=== PATIENT | female | born 1950 | race Caucasian/White ===

== ENCOUNTER 2019-02-04 18:23 | Inpatient (IN) | payer MEDICARE, OTHER ==
[~2019-02-04] VITALS: Ht 152.4 cm; Wt 114.5 kg
[~2019-02-04 18:23] MED LIST: ALPRAZOLAM ODT1 MG PO; BENADRYL25 M1 PO; COLACE100 MG PO; DILAUDID 11 MG/1 ML IV; EDLUAR10 MG PO; ENALAPRIL MALE2.5 MG PO; HYDROCODON-ACE1 EACH PO; LIPITOR10 MG PO; LISINOPRIL2.5 MG PO; LOPRESSOR25 MG PO; MIRTAZAPINE15 MG PO; MORPHINE SULFAT15 M2 PO; NEURONTIN300 MG PO; NITROSTAT0.4 MG SL; PLAVIX75 MG PO; PRISTIQ ER50 MG PO; PROMETHAZINE HC25 M1 PO; RITALIN10 MG PO; SANTYL15 GM TP; SYNTHROID50 MCG PO; ULTRAM50 MG PO; ZOLPIDEM TARTRA10 MG PO
--- OUTSIDE RECORDS SUMMARY | 2019-02-04 18:26 | XMS REPORT | Clinical Summary ---
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 Name Role Phone Asked, No Pcp PCP Unavailable Allergies Not on File Medications Not on file Active Problems Problem Noted Date Ventral hernia without obstruction or gangrene 05/08/2018 Encounters Care Team Description Date Type Specialty Cleveland Campos MD Ventral hernia without obstruction or gangrene (Primary Dx) 05/08/2018 Office Visit General Surgery after 02/03/2018 Social History Date Tobacco Use Types Packs/Day Years Used Never Assessed Sex Assigned at Date Recorded Not on file Industry Job Start Date Occupation Not on file Not on file Not on file Travel End Travel History Travel Start No recent travel history available. Last Filed Vital Signs Time Taken Vital Sign Reading 05/08/2018 5:31 PM CDT Blood Pressure 171/74 05/08/2018 5:31 PM CDT Pulse 80 - Temperature - 05/08/2018 5:31 PM CDT Respiratory Rate 10 - Oxygen Saturation - - Inhaled Oxygen - Concentration 05/08/2018 5:31 PM CDT Weight 101 kg (222 lb) 05/08/2018 5:31 PM CDT Height 144.8 cm (4' 9") 05/08/2018 5:31 PM CDT Body Mass Index 48.04 Plan of Treatment Health Maintenance Due Date Last Done Comments BREAST CANCER SCREENING 2002 COLON CANCER SCREENING 2002 SHINGLES VACCINES (#1) 2002 65+ PNEUMOCOCCAL VACCINE 2017 (1 of 2 - PCV13) PNEUMOCOCCAL 2017 POLYSACCHARIDE VACCINE AGE 65 AND OVER INFLUENZA VACCINE 06/20/2018 08/14/2017, 08/20/2016 Results Not on fileafter 02/03/2018 Insurance Payer Benefit Subscriber ID Type Phone Address Plan / Group HUMANA MEDICARE HUMANA HMO xxxxxxxxx HMO GOLD PLUS MEDICARE [facility] MEDICAID [facility] xxxxxxxxx HMO COMM STAR+ [place] MEDICAID MEDICAID xxxxxxxxx Medicaid Surgery Advance Directives Patient has advance care planning documents on file. For more information, alessandra rob contact: Tae Pérez [address] [place] [address]
--- OUTSIDE RECORDS SUMMARY | 2019-02-04 18:27 | XMS REPORT ---
Author Author [facility] Address Unknown Phone Unavailable Care Team Providers Care Photographer'S Model Name Role Phone Unavailable Unavailable Payers Payer Name Policy Type Policy Number Effective Date Expiration Date Problems This patient has no known problems. Allergies, Adverse Reactions, Alerts Allergy Name Allergy Type Status Severity Reaction(s) Onset Date Inactive Date Treating Clinician Comments propoxyphene HCl DA Active FL 2017-03-13 00:00:00 Penicillins DA Active FL 2017-03-13 00:00:00 Sulfa (Sulfonamide Antibiotics) DA Active FL 2017-03-13 00:00:00 iodine DA Active FL 2017-03-13 00:00:00 lorazepam DA Active U 2017-03-13 00:00:00 codeine DA Active FL 2017-03-13 00:00:00 aspirin DA Active 2017-03-13 00:00:00 erythromycin base DA Active FL 2017-03-13 00:00:00 clindamycin DA Active 2017-03-13 00:00:00 adhesive DA Active U 2017-03-13 00:00:00 latex DA Active FL 2017-03-13 00:00:00 avocado DA Active FL 2017-03-13 00:00:00 coffee (Coffea arabica) DA Active 2017-03-13 00:00:00 MUSHROOMS DA Active 2015-08-09 00:00:00 Medications This patient has no known medications.
--- OUTSIDE RECORDS SUMMARY | 2019-02-04 18:27 | XMS REPORT | Continuity of Care Document ---
Author Author [facility] Interface Address Unknown Phone Unavailable Problems Problem Status Onset Date Classification Date Reported Comments Source DX: R07.9=CHEST PAIN, UNSPECIFIED Active 09/06/2017 [facility] S42.92XA - FRACTURE OF LEFT SHOULDER GIR Active 08/17/2017 ELIZAB[facility] Marmolejo SEVERE PAIN/HERNIA Active 01/19/2015 [facility] Discharge Diagnosis: Closed fracture distal radius and ulna 07/18/2014 07/21/2014 [facility] OTHERS Active 07/18/2014 [facility] ARM PAIN Active 07/16/2014 [facility] Discharge Diagnosis: Post-operative pain 07/16/2014 07/20/2014 [facility] Asthma Resolved Problem 12/16/2018 [facility] Resolved Problem 12/16/2018 [facility] HTN (<span ID="[id number]">Confirmed</span>) Resolved Problem 12/16/2018 [facility] (<span ID="[id number]">Confirmed</span>)<sup>1</sup> Resolved Problem 12/16/2018 4 STENTS PLACED; [facility], [facility]NSPECIFIED Active [facility] Medications Medication Details Route Status Patient Instructions Ordering Provider Order Date Source Acetaminophen 325 MG / Hydrocodone Bitartrate 5 MG Oral Tablet [Brewer 5/325] 1 tab, Route: PO, Drug Form: TAB, Dosing Weight 81.364, kg, ONCE, STAT, Start date: 07/18/14 21:33:00, Stop date: 07/18/14 21:33:00 Inactive 07/19/2014 [facility] Alprazolam 1 mg, PO, Q8H, as needed for anxiety Active 07/17/2014 [facility] fentaNYL 50 mcg/hr transdermal film, extended release 1 patch, TOP, Q72H Active 07/17/2014 [facility] levothyroxine 50 mcg (0.05 mg) oral tablet 50 microgram=1 tab, PO, Daily Active 07/17/2014 [facility] Lidocaine Hydrochloride 0.05 MG/MG Transdermal Patch [Lidoderm] 1 patch, TOP, Daily, remove patches after 12 hoursSpecial Instructions: remove patches after 12 hours Active 07/17/2014 [facility] gabapentin 300 MG Oral Capsule 300 mg=1 cap, PO, TID Active 07/17/2014 [facility] Azo-Cranberry oral tablet 1 tab, PO, Daily Active 07/17/2014 [facility] Acetaminophen 325 MG / Hydrocodone Bitartrate 7.5 MG Oral Tablet [Brewer 7.5/325] 2 tab, PO, Q6H, Pain Active 07/17/2014 [facility] Zolpidem tartrate 10 MG Oral Tablet [Ambien] 10 mg=1 tab, PO, Bedtime, for sleep Active 07/17/2014 [facility] LORazepam 2 mg/mL injectable solution 2 mg=1 ml, IM, Q4H, Anxiety Active 07/17/2014 [facility] ziprasidone 20 MG/ML Injectable Solution [Geodon] 10 mg, IM, Q24H, Agitation Active 07/17/2014 [facility] Nitrofurantoin 100 MG Oral Capsule [Macrobid] 100 mg=1 cap, PO, BID Active 07/17/2014 [facility] Ibuprofen 200 MG Oral Tablet 400 mg=2 tab, PO, Q6H, Pain Active 07/17/2014 [facility] Milk of Magnesia 8% oral suspension 2.4 gm=30 ml, PO, Q6H, Constipation Active 07/17/2014 [facility] albuterol CFC free 90 mcg/inh inhalation aerosol with adapter 2 puff, INHALATION, BID Active 07/17/2014 [facility] Albuterol 0.833 MG/ML / Ipratropium [place] 0.167 MG/ML Inhalant Solution 3 ml, NEB, Q4H, as needed for shortness of breath or wheezing Active 07/17/2014 [facility] Acetaminophen 500 mg, PO, Q4H, as needed for pain Active 07/17/2014 [facility] benzonatate 100 mg oral capsule 100 mg=1 cap, PO, Q4H, Cough Active 07/17/2014 [facility] Docusate Sodium 50 MG / sennosides, SHELTER 8.6 MG Oral Tablet 1 tab, PO, Bedtime Active 07/17/2014 [facility] Morphine 4 mg, 2 mL, Route: IM, Drug form: INJ, ONCE, Dosing Weight 81.364, kg, Priority: STAT, Start date: 07/16/14 21:57:00, Stop date: 07/16/14 21:57:00Notes: (Same as:MORPhine Sulfate) Inactive 07/17/2014 [facility] Allergies, Adverse Reactions, Alerts Substance Category Reaction Severity Reaction type Status Date Reported Comments Source aspirin Assertion Drug allergy Active [facility] [place] codeine Assertion Drug allergy Active [facility] [place] contrast media (iodine-based) Assertion Drug allergy Active [facility] [place] Darvon Assertion Drug allergy Active [facility] [place] erythromycin Assertion Drug allergy Active [facility] [place] Latex Assertion Drug allergy Active [facility] [place] penicillins Assertion Drug allergy Active [facility] [place] sulfa drugs Assertion Drug allergy Active [facility] [place] Immunizations Immunization Date Given Site Status Last Updated Comments Source Results Order Name Results Value Reference Range Date Interpretation Comments Source Shoulder series DX Shoulder series DX Exam: Shoulder series DX left, 3 views Reason for Exam: - M75.82 Other shoulder lesions, left shoulder Comparison Exam: X-ray 08/25/2017 Discussion: Chronic appearing fracture seen within the neck of the left humerus which was previously described on 2017 exam. 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 AC joint is unremarkable. No suspicious osteoblastic or osteolytic lesions seen to suggest pathologic involvement. Impression: 1. Chronic appearing fracture seen within the neck of the left humerus which was previously described on 2017 exam. 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 12/14/2018 - - Read by: Scott Lacy MD Dictated Date/time: 12/14/18 15:37 Electronically Signed by: Scott Lacy MD 12/14/18 15:39 FINAL REPORT [facility] Cardiac SPECT multi studies NM Cardiac SPECT multi studies NM Gated myocardial perfusion scan is performed as per protocol at nuclear medicine lab results [facility]. Lexiscan injected down 0.4 mg intravenously stress agent Cardiolite injected 11 mCi for resting protocol and 30 mCi for stress protocol. Impression Left ventricular ejection fraction 60% . No evidence of wall motion abnormality noted. No ischemia or scar noted. Normal nuclear stress test. 09/28/2017 - - Read by: Rajan Peterson MD Dictated Date/time: 10/18/17 11:33 Electronically Signed by: Rajan Peterson MD 10/18/17 11:36 FINAL REPORT [place] Shoulder series DX Shoulder series DX Exam: Left shoulder x-ray, 3 views Reason for Exam: - S42.92XA Fracture of left shoulder girdle, part unspecified, initial encounter for closed fracture Comparison Exam: X-ray 10/26/2015 Discussion: Patient indicates she has a known left shoulder fracture. A subacute appearing fracture is seen within the neck of the humerus. The AC joint appears intact. No suspicious osteoblastic or osteolytic lesions seen to suggest pathologic involvement. Visualized portions of the left rib cage and left lung are unremarkable. If previous exams become available, an addendum can be made to this report. Impression: 1. A subacute appearing fracture is seen within the neck of the left humerus. 08/25/2017 - - Read by: Scott Lacy MD Dictated Date/time: 08/25/17 16:22 Electronically Signed by: Scott Lacy MD 08/25/17 16:25 FINAL REPORT [facility] Marmolejo Abdomen acute series w chest 1 view DX Abdomen acute series w chest 1 view DX Exam: Chest x-ray, 1 view and abdominal x-ray, 2 views Reason for Exam: - R10.84 Generalized abdominal pain Comparison Exam: Abdominal x-ray 10/26/2015 Discussion: Cardiomediastinal silhouette is within normal limits. Both hemidiaphragms well visualized. No pulmonary edema or pleural effusions. No focal lung consolidations. No free air seen underneath the diaphragm. No dilated loops of bowel or abnormal air-fluid level patterns. However, there is a large right-sided abdominal hernia containing multiple segments of bowel. There are no suspicious calcifications seen overlying the kidneys or expected course of the urinary collecting system. Degenerative changes seen within the lower lumbar spine. Impression: 1. No dilated loops of bowel or abnormal air-fluid level patterns. However, there is a large right-sided abdominal hernia containing multiple segments of bowel. 08/25/2017 - - Read by: Scott Lacy MD Dictated Date/time: 08/25/17 16:25 Electronically Signed by: Scott Lacy MD 08/25/17 16:28 FINAL REPORT [facility] Marmole[facility] Chest 2 views DX Chest 2 views DX Exam: Two-view chest x-ray Reason for Exam: Chest pain unspecified Comparison Exam: 07/17/2007 Discussion: Cardiomediastinal silhouette is within normal limits. Both hemidiaphragms well visualized. No pulmonary edema or pleural effusions. No focal lung consolidations. Trachea is midline. Mild multilevel degenerative disc disease seen within the thoracic spine. Impression: 1. No acute cardiopulmonary abnormalities. 10/26/2015 - - Read by: Scott Lacy MD Dictated Date/time: 10/27/15 08:32 Electronically Signed by: Scott Lacy MD 10/27/15 08:34 FINAL REPORT ELIZABETH Carmichaela Abdomen AP DX Abdomen AP DX ABDOMEN X-RAY, one VIEWS History: 65 year female with abdominal pain, history of a ventral hernia without obstruction Comparison: 05/13/2008 Findings: The bowel gas distribution is not obstructed and nonspecific. The colon is partial distended with stool and gas. There are no abnormal calcifications projecting over abdomen or pelvis. A small phlebolith seen at the right hemipelvis, was seen previously. Surgical clips project over the right upper quadrant. Mild osteoarthritic changes seen throughout the spine. IMPRESSION: Unremarkable abdomen x-ray exam. 10/26/2015 - - Read by: Asim Linton MD Dictated Date/time: 10/27/15 10:12 Electronically Signed by: Asim Linton 10/27/15 10:14 FINAL REPORT ELIZABETH Carmichaela Forearm AP lateral Forearm AP lateral NAME: LUKASZ CAMPBELL : 1950 SEX: F Ordering Physician: Aristeo Russell Three-view examination of the left forearm: Jul 18, 2014 08:46:00 PM. CLINICAL INDICATION: Fracture. Comparison Examination: 07/16/2014. FINDINGS: Overlying cast limits evaluation of bony detail. Two pins are through a left distal radial metaphyseal/epiphyseal fracture. There also appears to be some persistent lucency to a fracture of the left distal ulnar metaphyseal/epiphyseal region. No other fracture or dislocation. The wrist area is poorly evaluated on this study. SL: 12 07/18/2014 - - Read by: Taiwo Yoon MD Dictated Date/time: 07/18/14 20:55 Electronically Signed by: Taiwo Yoon MD 07/18/14 20:58 FINAL REPORT [facility] Vital Signs Vital Sign Value Date Comments Source Systolic (mm Hg) 128 07/19/2014 [facility] Diastolic (mm Hg) 78 07/19/2014 [facility] Heart Rate 77 07/19/2014 [facility] Temperature Oral (F) 98.1 F 07/19/2014 [facility] Respitory Rate 16 07/19/2014 [facility] Height 152.4 cm 07/19/2014 [facility] BMI Calculated 35.03 07/19/2014 [facility] Weight 81.364 07/19/2014 [facility] Heart Rate 96 07/19/2014 [facility] Temperature Oral (F) 36.4 Naz 07/19/2014 [facility] Respitory Rate 18 07/19/2014 [facility] Systolic (mm Hg) 136 07/19/2014 [facility] Diastolic (mm Hg) 73 07/19/2014 [facility] Systolic (mm Hg) 131 07/17/2014 [facility] Respitory Rate 16 07/17/2014 [facility] Diastolic (mm Hg) 84 07/17/2014 [facility] Heart Rate 93 07/17/2014 [facility] Weight 81.364 07/17/2014 [facility] Height 152.4 cm 07/17/2014 [facility] BMI Calculated 35.03 07/17/2014 [facility] Systolic (mm Hg) 127 07/17/2014 [facility] Diastolic (mm Hg) 84 07/17/2014 [facility] Heart Rate 90 07/17/2014 [facility] Temperature Oral (F) 98.5 F 07/17/2014 [facility] Respitory Rate 18 07/17/2014 [facility] Encounters Location Location Details Encounter Type Encounter Number Reason For Visit Attending Provider ADM Date DC Date Status Source [facility] [id number] Bola Mcghee 07/17/2014 07/17/2014 [facility] [id number] Cat Russell 07/19/2014 07/19/2014 [facility] [place] [facility] [id number] Zane Liang 10/26/2015 10/27/2015 [facility] [place] [facility] [place] [facility] [id number] Zane Liang 08/25/2017 08/26/2017 ELIZABETH Marmolejo [facility] [id number] Rajan Peterson 09/28/2017 09/29/2017 [facility] [place] [facility] [id number] Zane Liang 12/14/2018 12/15/2018 ELIZABETH Marmolejo Procedures Procedure Code Date Perfomer Comments Source
--- OUTSIDE RECORDS SUMMARY | 2019-02-04 18:27 | XMS REPORT | Summary of Care ---
Author Organization Unknown Address Unknown Phone Unavailable Encounter CRISTÓBAL Hoffman(SILVIA) [id number] Date(s): 07/18/14 - 07/19/14 [facility] [address] [address] - [facility] Discharge Diagnosis: Closed fracture distal radius and ulna Discharge Disposition: Home Physician Attending: Keya Russell DO Reason for Visit OTHERS Vital Signs Most recent to 1 2 oldest [Reference Range]: Height 152.4 cm (07/18/14 7:12 PM) Temperature Oral 98.1 DegF [96.4-99.1 DegF] (07/19/14 12:40 AM) Temperature Oral 36.4 DegC [35.8-37.3 DegC] (07/18/14 7:12 PM) Systolic Blood 128 mmHg 136 mmHg Pressure [90-140 (07/19/14 12:40 AM) (07/18/14 7:12 PM) mmHg] Diastolic Blood 78 mmHg 73 mmHg Pressure [60-90 (07/19/14 12:40 AM) (07/18/14 7:12 PM) mmHg] Respiratory Rate 16 BRMIN 18 BRMIN [14-20 BRMIN] (07/19/14 12:40 AM) (07/18/14 7:12 PM) Peripheral Pulse 77 bpm 96 bpm Rate [60-100 bpm] (07/19/14 12:40 AM) (07/18/14 7:12 PM) Weight 81.364 kg (07/18/14 7:12 PM) Body Mass Index 35.03 m2 (07/18/14 7:12 PM) Problem List Condition Effective Dates Status Health Status Informant Asthma(Confirmed) Resolved Diabetes Resolved mellitus(Confirmed) HTN Resolved (hypertension)(Confi rmed) [place] (myocardial Resolved infarction)(Confirme d)1 14 STENTS PLACED; 1998 Allergies, Adverse Reactions, Alerts Substance Reaction Severity Status aspirin Active codeine Active contrast media Active (iodine-based) Darvon Active erythromycin Active Latex Active penicillins Active sulfa drugs Active Medications [place] 5/325 oral tablet 1 tab, Route: PO, Drug Form: TAB, Dosing Weight 81.364, kg, ONCE, STAT, Start da te: 07/18/14 21:33:00, Stop date: 07/18/14 21:33:00 Start Date: 07/18/14 Stop Date: 07/18/14 Status: Completed Medications Administered During Your Visit No data available for this section Immunizations No data available for this section
--- OUTSIDE RECORDS SUMMARY | 2019-02-04 18:27 | XMS REPORT | Summary of Care ---
Author Author [facility] Organization [facility] Address Unknown Phone Unavailable Encounter HQ Yasmin(SILVIA) [id number] Date(s): 09/28/17 - 09/28/17 [facility] [address] [place] [address]- Discharge Disposition: Home or Self Care Attending Physician: Rajan Peterson MD Referring Physician: Rajan Peterson MD Vital Signs No data available for this section Problem List Condition Effective Dates Status Health Status Informant Asthma(Confirmed) Resolved Diabetes Resolved mellitus(Confirmed) HTN Resolved (hypertension)(Confi rmed) [place] (myocardial Resolved infarction)(Confirme d)1 14 STENTS PLACED; 1998 Allergies, Adverse Reactions, Alerts Substance Reaction Severity Status penicillins Active sulfa drugs Active codeine Active erythromycin Active aspirin Active Darvon Active Latex Active contrast media Active (iodine-based) Medications No data available for this section Results No data available for this section Immunizations No data available for this section Procedures No data available for this section Social History No data available for this section Assessment and Plan No data available for this section
--- OUTSIDE RECORDS SUMMARY | 2019-02-04 18:27 | XMS REPORT | Summary of Care ---
Author Author [facility] [place] Organization [facility] Outpatient Imaging [facility] Address Unknown Phone Unavailable Encounter HQ Chingntr_wilman(FIN) [id number] Date(s): 10/26/15 - 10/26/15 [facility] [address] [place] [address] [phone] Discharge Disposition: Home Attending Physician: Zane Liang MD Vital Signs No data available for this section Problem List Condition Effective Dates Status Health Status Informant Asthma(Confirmed) Resolved Diabetes Resolved mellitus(Confirmed) HTN Resolved (hypertension)(Confi rmed) [place] (myocardial Resolved infarction)(Confirme d)1 14 STENTS PLACED; 1998 Allergies, Adverse Reactions, Alerts Substance Reaction Severity Status aspirin Active codeine Active contrast media Active (iodine-based) Darvon Active erythromycin Active Latex Active penicillins Active sulfa drugs Active Medications No data available for this section Results No data available for this section Immunizations No data available for this section Procedures No data available for this section Social History No data available for this section Assessment and Plan No data available for this section
--- OUTSIDE RECORDS SUMMARY | 2019-02-04 18:27 | XMS REPORT | Summary of Care ---
Author Author [facility] [place] Organization [facility] Outpatient Imaging [facility] Address Unknown Phone Unavailable Encounter HQ Elar_wilman(FIN) [id number] Date(s): 08/25/17 - 08/25/17 [facility] [address] [place] [address]- [phone] Discharge Disposition: Home or Self Care Attending Physician: Zane Liang MD Vital Signs No data available for this section Problem List Condition Effective Dates Status Health Status Informant Asthma(Confirmed) Resolved Diabetes Resolved mellitus(Confirmed) HTN Resolved (hypertension)(Confi rmed) [place] (myocardial Resolved infarction)(Confirme d)1 14 STENTS PLACED; [...]
--- OUTSIDE RECORDS SUMMARY | 2019-02-04 18:27 | XMS REPORT | Summary of Care ---
Author Organization Unknown Address Unknown Phone Unavailable Encounter CRISTÓBAL Hoffman(SILVIA) [id number] Date(s): 07/16/14 - 07/17/14 [facility] [address] Discharge Diagnosis: Post-operative pain Discharge Disposition: Home Physician Attending: Bola Mcghee MD Reason for Visit ARM PAIN Vital Signs Most recent to 1 2 oldest [Reference Range]: Height 152.4 cm (07/16/14 7:28 PM) Temperature Oral 98.5 DegF [96.4-99.1 DegF] (07/16/14 7:28 PM) Systolic Blood 131 mmHg 127 mmHg Pressure [90-140 (07/17/14 1:46 AM) (07/16/14 7:28 PM) mmHg] Diastolic Blood 84 mmHg 84 mmHg Pressure [60-90 (07/17/14 1:46 AM) (07/16/14 7:28 PM) mmHg] Respiratory Rate 16 BRMIN 18 BRMIN [14-20 BRMIN] (07/17/14 1:46 AM) (07/16/14 7:28 PM) Peripheral Pulse 93 bpm 90 bpm Rate [60-100 bpm] (07/17/14 1:46 AM) (07/16/14 7:28 PM) Weight 81.364 kg (07/16/14 7:28 PM) Body Mass Index 35.03 m2 (07/16/14 7:28 PM) Problem List Condition Effective Dates Status Health Status Informant Asthma(Confirmed) Resolved Diabetes Resolved mellitus(Confirmed) HTN Resolved (hypertension)(Confi rmed) CT (myocardial Resolved infarction)(Confirme d)1 14 STENTS PLACED; 1998 Allergies, Adverse Reactions, Alerts Substance Reaction Severity Status aspirin Active codeine Active contrast media Active (iodine-based) Darvon Active erythromycin Active Latex Active penicillins Active sulfa drugs Active Medications acetaminophen 500 mg, PO, Q4H, as needed for pain Start Date: 07/16/14 Status: Ordered albuterol CFC free 90 mcg/inh inhalation aerosol with adapter 2 puff, INHALATION, BID Start Date: 07/16/14 Status: Ordered albuterol-ipratropium 2.5-0.5 mg inhalation solution 3 ml, NEB, Q4H, as needed for shortness of breath or wheezing Start Date: 07/16/14 Status: Ordered ALPRAZOLam 1 mg, PO, Q8H, as needed for anxiety Start Date: 07/16/14 Status: Ordered Ambien 10 mg oral tablet 10 mg=1 tab, PO, Bedtime, for sleep Start Date: 07/16/14 Status: Ordered Azo-Cranberry oral tablet 1 tab, PO, Daily Start Date: 07/16/14 Status: Ordered benzonatate 100 mg oral capsule 100 mg=1 cap, PO, Q4H, Cough Start Date: 07/16/14 Status: Ordered docusate-senna 50 mg-8.6 mg oral tablet 1 tab, PO, Bedtime Start Date: 07/16/14 Status: Ordered fentaNYL 50 mcg/hr transdermal film, extended release 1 patch, TOP, Q72H Start Date: 07/16/14 Status: Ordered gabapentin 300 mg oral capsule 300 mg=1 cap, PO, TID Start Date: 07/16/14 Status: Ordered Geodon 20 mg intramuscular injection 10 mg, IM, Q24H, Agitation Start Date: 07/16/14 Status: Ordered ibuprofen 200 mg oral tablet 400 mg=2 tab, PO, Q6H, Pain Start Date: 07/16/14 Status: Ordered levothyroxine 50 mcg (0.05 mg) oral tablet 50 microgram=1 tab, PO, Daily Start Date: 07/16/14 Status: Ordered Lidoderm 5% topical film (patch) 1 patch, TOP, Daily, remove patches after 12 hours Special Instructions: remove patches after 12 hours Start Date: 07/16/14 Status: Ordered LORazepam 2 mg/mL injectable solution 2 mg=1 ml, IM, Q4H, Anxiety Start Date: 07/16/14 Status: Ordered Macrobid 100 mg oral capsule 100 mg=1 cap, PO, BID Start Date: 07/16/14 Status: Ordered Milk of Magnesia 8% oral suspension 2.4 gm=30 ml, PO, Q6H, Constipation Start Date: 07/16/14 Status: Ordered morphine Sulfate 4 mg, 2 mL, Route: IM, Drug form: INJ, ONCE, Dosing Weight 81.364, kg, Priority: STAT, Start date: 07/16/14 21:57:00, Stop date: 07/16/14 21:57:00 Notes: (Same as:MORPhine Sulfate) Start Date: 07/16/14 Stop Date: 07/16/14 Status: Completed [place] 7.5/325 oral tablet 2 tab, PO, Q6H, Pain Start Date: 07/16/14 Status: Ordered Medications Administered During Your Visit No data available for this section Immunizations No data available for this section
--- OUTSIDE RECORDS SUMMARY | 2019-02-04 18:27 | XMS REPORT | Summary of Care ---
Author Author [facility] [place] Organization [facility] [place] Address Unknown Phone Unavailable Encounter HQ Viry_wilman(FIN) [id number] Date(s): 12/14/18 - 12/14/18 [facility] Outpatient Imaging [facility] [address] [place] [phone] Discharge Disposition: Home or Self Care Attending Physician: Zane Liang MD Referring Physician: Zane Liang MD Vital Signs No data available for this section Problem List Condition Effective Dates Status Health Status Informant Asthma(Confirmed) Resolved Diabetes Resolved mellitus(Confirmed) HTN Resolved (hypertension)(Confi rmed) [place] (myocardial Resolved infarction)(Confirme d)1 14 STENTS PLACED; [...]
[2019-02-04] MEDS ORDERED: SODIUM CHLORIDE FLUSH 10 ML SYR INJ PRN (19:00)
[2019-02-04] MEDS ORDERED: DEXTROSE 50% SYRINGE 50 ML IV PRN (19:00)
[2019-02-04] MEDS ORDERED: CLOPIDOGREL BISULFATE 75 MG TAB PO ONE (19:35)
--- NOTE | 2019-02-04 19:37 | NUR ---
rec'd pt in rm 11 for c/o open wound to the abdominal area
--- NOTE | 2019-02-04 19:48 | Diagnostic Imaging Report ---
EXAMINATION: CHEST SINGLE (NOT PORTABLE) INDICATION: 68-year-old female, abdominal wall cellulitis COMPARISON: Chest radiograph dated 03/16/2014 FINDINGS: AP view TUBES and LINES: None. LUNGS/PLEURA: Interval increase in interstitial prominence compared to prior study. No focal consolidation or pleural effusion. HEART AND MEDIASTINUM: Enlarged cardiac silhouette. Coronary artery stent. BONES AND SOFT TISSUES: No acute osseous lesion. Soft tissues are unremarkable. UPPER ABDOMEN: No free air under the diaphragm. IMPRESSION: Enlarged cardiac silhouette without acute pulmonary process. Signed by: Christian Mcwilliams MD on 02/04/2019 7:44 PM
--- NOTE | 2019-02-04 19:54 | Diagnostic Imaging Report ---
EXAMINATION: ABDOMEN-1VIEW (KUB) INDICATION: 68-year-old female with abdominal wall cellulitis COMPARISON: Prior abdominal radiographs dated 02/27/2013 FINDINGS: 3 AP views of the abdomen. Integrity of the abdomen is likely not included on this exam due to body habitus. Large ventral wall hernia defect with multiple loops of large and small bowel projecting outside of the abdomen from the right. No definitive evidence of obstruction or free air within the limitations of this exam. Cholecystectomy clips. Degenerative changes of the lower lumbar spine. No lytic or blastic osseous lesion. Visualized portions of the lung bases are clear. Partially mineralized densities projecting superiorly to the left greater trochanter may represent a free body in the left hip. IMPRESSION: Study is limited due to body habitus. Large abdominal wall defect with multiple loops of small and large bowel projecting outside of the abdominal wall on the right. No clear evidence of obstruction. Signed by: Christian Mcwilliams MD on 02/04/2019 7:51 PM
[2019-02-04 20:00] LABS: BASOPHILS # (AUTO) 0.2 (0.0-0.1); BASOPHILS % 0.9 % (0.0-1.0); EOSINOPHILS # (AUTO) 0.3 (0.0-0.4); EOSINOPHILS % 1.8 % (0.0-6.0); HEMATOCRIT 47.9 % (34.2-44.1); HEMOGLOBIN 14.8 g/dL (12.0-16.0); LYMPHOCYTES # (AUTO) 4.4 (1.0-3.2); LYMPHOCYTES % 27.8 % (18.0-39.1); MEAN CORPUSCULAR HEMOGLOBIN 28.9 pg (28-32); MEAN CORPUSCULAR HGB CONC 30.9 g/dL (31-35); MEAN CORPUSCULAR VOLUME 93.6 fL (81-99); MONOCYTES # (AUTO) 1.3 (0.2-0.8); MONOCYTES % 8.2 % (4.4-11.3); NEUTROPHILS # (AUTO) 9.4 (2.1-6.9); NEUTROPHILS % 59.3 % (38.7-80.0); PLATELET COUNT 318 x10e3/uL (140-360); RED BLOOD COUNT 5.12 x10e6/uL (3.6-5.1); RED CELL DISTRIBUTION WIDTH 15.9 % (11.7-14.4)
[2019-02-04 20:02] LABS: BILIRUBIN,URINE NEGATIVE (NEGATIVE); CLARITY,URINE SL CLOUDY (CLEAR); COLOR,URINE YELLOW (YELLOW); KETONES,URINE NEGATIVE (NEGATIVE); LEUKOCYTE ESTERASE ,URINE NEGATIVE (NEGATIVE); NITRITE,URINE NEGATIVE (NEGATIVE); PROTEIN,URINE DIPSTICK NEGATIVE (NEGATIVE); URINE UROBILINOGEN 0.2 mg/dL (0.2 - 1)
[2019-02-04 20:04] LABS: INR 0.88; PROTHROMBIN TIME 12.4 seconds (11.9-14.5)
[2019-02-04 20:05] LABS: PARTIAL THROMBOPLASTIN TIME 28.6 seconds (23.8-35.5)
[2019-02-04 20:13] LABS: BACTERIA,URINE FEW /HPF; EPITHELIAL CELLS,URINE FEW /LPF; RBC,URINE 0-5 /HPF (0-5)
[2019-02-04 20:14] LABS: ALBUMIN 2.8 g/dL (3.5-5.0); ALBUMIN/GLOBULIN RATIO 0.5 (0.8-2.0); ANION GAP 15.8 mmol/L (8-16); CREATININE, SERUM 1.01 mg/dL (0.57-1.11); POTASSIUM 3.8 mmol/L (3.5-5.1)
[2019-02-04] MEDS: VANCOMYCIN 1GM/NS 250 ML 250 ML IV SCH (20:23)
[2019-02-04] MEDS ORDERED: QUETIAPINE FUMARATE 100 MG TAB PO SCH (21:00)
[2019-02-04] MEDS ORDERED: GABAPENTIN 300 MG CAP PO ONE (21:00)
[2019-02-04] MEDS: INSULIN LISPRO 100 UNIT/1 ML 3ML VIAL SQ SCH (21:27)
[2019-02-04] MEDS: QUETIAPINE FUMARATE 100 MG TAB PO SCH (22:15)
[2019-02-04] MEDS ORDERED: ONDANSETRON HCL4 MG PO (23:11)
[2019-02-04] MEDS ORDERED: SEROQUEL25 MG PO (23:11)
[2019-02-04] MEDS ORDERED: PANTOPRAZOLE SO40 MG PO (23:11)
[2019-02-04] MEDS ORDERED: MUPIROCIN22 GM TOP (23:11)
[2019-02-04] MEDS ORDERED: PAROXETINE HCL20 MG PO (23:11)
[2019-02-04] MEDS ORDERED: MORPHABOND PO (23:11)
[2019-02-04] MEDS ORDERED: LORATADINE10 MG PO (23:11)
[2019-02-04] MEDS ORDERED: PROAIR HFA INH8.5 GM INH (23:11)
[2019-02-04] MEDS ORDERED: MOBIC7.5 MG PO (23:11)
[2019-02-04] MEDS ORDERED: CEFUROXIME250 MG PO (23:14)
[2019-02-04] MEDS ORDERED: IBUPROFEN200 MG PO (23:14)
--- NOTE | 2019-02-04 23:14 | NUR ---
HOME MED LIST UPDATED INTO THE COMPUTER
[2019-02-04] MEDS ORDERED: PRISTIQ ER100 MG PO (23:19)
[2019-02-04] MEDS ORDERED: PIPER-TAZ 3.375 GM 50 ML ONE (23:56)
--- OUTSIDE RECORDS SUMMARY | 2019-02-04 23:58 | XMS REPORT | Clinical Summary ---
Author Author [facility] [employer] Organization [facility] Address Unknown Phone Unavailable Care Team Providers Care Welder Fabricator Name Role Phone Asked, No Pcp PCP [...] HUMANA HMO xxxxxxxxx HMO GOLD PLUS MEDICARE [facility] MEDICAID [facility] xxxxxxxxx HMO [employer] [facility] MEDICAID MEDICAID xxxxxxxxx Medicaid Surgery Advance Directives Patient has advance care planning documents on file. For more information, alessandra rob contact: Tae Pérez [address] [place] [address]
[2019-02-05] MEDS ORDERED: PIPER-TAZ 3.375 GM 50 ML IV ONE (00:01)
[2019-02-05] MEDS: ZOLPIDEM TARTRATE 10 MG TAB PO PRN ×2 (00:14→21:30)
[2019-02-05] MEDS: LEVOTHYROXINE SODIUM 50 MCG TAB PO SCH (06:20)
--- NOTE | 2019-02-05 06:55 | NUR ---
ASSUMED CARE AT THIS TIME. PATIENT LAYING IN BED WITH EYES CLOSED. SKIN WARM AND DRY. RESP EVEN AND UNLABORED. NO SIGNS OF ACUTE DISTRESS NOTED AT THIS TIME.
[2019-02-05] MEDS: HYDROCODONE/APAP 10MG-325MG TAB PO PRN ×3 (07:43→21:17)
[2019-02-05] MEDS: VANCOMYCIN 1GM/NS 250 ML 250 ML IV SCH ×2 (07:45→19:40)
[2019-02-05] MEDS: INSULIN LISPRO 100 UNIT/1 ML 3ML VIAL SQ SCH ×4 (07:52→21:00)
[2019-02-05] MEDS: DESVENLAFAXINE SUCCINATE 50 MG TAB.SR.24H PO SCH (08:41)
--- NOTE | 2019-02-05 09:05 | NUR ---
PATIENT AWAKE AND ALERT ON CELL PHONE. SKIN WARM AND DRY. RESP EVEN AND UNLABORED. NO SIGNS OF ACUTE DISTRESS NOTED AT THIS TIME. DENIES ANY C/O AT THIS TIME.
[2019-02-05] MEDS: PIPER-TAZ 3.375 GM 50 ML IV SCH ×2 (09:23→18:06)
--- NOTE | 2019-02-05 10:12 | NUR ---
DR Priti DUARTE AT BEDSIDE FOR PATIENT EVAL.
--- NOTE | 2019-02-05 10:30 | NUR ---
REPORT FROM ER NURSE SAY AND PT TO THE FLOOR AT THIS TIME. PT DENIES FURTHER NEEDS.
[2019-02-05 12:09] VITALS: BP 158/60
--- NOTE | 2019-02-05 12:20 | NUR ---
PT OFF UNIT TO RADIOLOGY.
--- NOTE | 2019-02-05 12:45 | NUR ---
PT BACK TO UNIT FROM RADIOLOGY.
--- NOTE | 2019-02-05 12:53 | Diagnostic Imaging Report ---
EXAMINATION: CT of the abdomen and pelvis without contrast. TECHNIQUE: Spiral CT images of the abdomen and pelvis were performed from the lung bases to the lesser trochanters. No intravenous contrast was given per iodine allergy. Coronal and sagittal reformatted images were obtained. COMPARISON: Abdominal radiograph 02/04/2019 CLINICAL HISTORY:Cellulitis of abdominal wall DISCUSSION: ABSENCE OF INTRAVENOUS CONTRAST DECREASES SENSITIVITY FOR DETECTION OF FOCAL LESIONS AND VASCULAR PATHOLOGY. ABDOMEN/PELVIS: LOWER THORAX: Linear opacity compatible with subsegmental atelectasis in the dependent lower lobes. HEPATOBILIARY:Hepatic parenchyma is diffusely hypoattenuating compatible with steatosis. No focal hepatic lesion or intrahepatic biliary ductal dilatation. The gallbladder has been removed. SPLEEN: No splenomegaly. PANCREAS: The pancreatic head and uncinate process are largely fatty replaced. No focal mass or pancreatic ductal dilatation. ADRENALS: No adrenal nodules. KIDNEYS/URETERS: No hydronephrosis, stones, or solid mass lesions. PELVIC ORGANS/BLADDER: Urinary bladder is incompletely distended and poorly evaluated. The uterus is not identified and may have been resected. No adnexal mass. PERITONEUM/RETROPERITONEUM: No ascites. No pneumoperitoneum. A very large ventral abdominal wall hernia with defect measuring approximately 15.3 cm craniocaudal x 16.6 cm transverse contains large segments of the small and large intestine, as well as the greater curvature of the stomach and portions of the left hepatic lobe. No inflammatory change or bowel dilatation within the hernia sac. No subcutaneous gas or fluid collection, though evaluation of the anterior abdominal surface is limited secondary to patient body habitus with multiple contact points with the scanning gantry. LYMPH NODES: No pelvic sidewall, retroperitoneal, or mesenteric adenopathy. VESSELS: Atherosclerotic calcification of the abdominal aorta without aneurysmal dilatation. Evaluation is otherwise limited in the absence of intravenous contrast. GI TRACT: The large bowel shows no evidence of distention or wall thickening. The entire ascending and transverse colon are located within the above-described hernia sac. The appendix is not definitively identified. No pericecal inflammatory changes. The stomach is collapsed with prominence of the rugal folds. There is no small bowel dilatation to suggest obstruction. BONES AND SOFT TISSUES: No osseous destructive lesions. Mild degenerative disc changes and facet arthropathy of the lower lumbar spine. No additional focal soft tissue abnormalities. IMPRESSION: Very large ventral abdominal wall hernia contains portions of the colon, small bowel, stomach, and liver as detailed above. No inflammatory changes or evidence of bowel obstruction within the hernia sac. No subcutaneous gas or fluid collection in this patient with reported history of abdominal wall cellulitis. Atherosclerotic vascular disease. Hepatic steatosis. Signed by: Dr. Chente Sommers M.D. on 02/05/2019 12:49 PM
[2019-02-05 14:00] VITALS: BP 129/58
--- NOTE | 2019-02-05 14:50 | NUR ---
Visit made by the Spiritual Care Department Pastoral Visitor, Milagro Sanchez. Pt sleeping soundly and no family present. Pastoral Visitor left a card describing availability of stripper and printer and instructions on how to contact a stripper and printer. NOLA MOON Lock Setter Spiritual Care Department O: [phone] Pager: [phone] ([phone] number calling from)
[2019-02-05 15:59] VITALS: BP 129/58
[2019-02-05 16:23] VITALS: BP 129/58
--- NOTE | 2019-02-05 18:28 | History and Physical ---
HISTORY OF PRESENT ILLNESS: This is a 68-year-old female patient presented to the hospital assessing the treatment. The patient has large ventral hernia and she has had chronic skin excoriation, but now she is having ulceration with copious foul discharge. The patient was treated as an outpatient with minocycline, but the patient did not respond to any Bactroban ointment. The patient has severe debilitation from the large ventral hernia. The patient had ER visit as well as outpatient visit. The patient continued to deteriorate with her ulceration and started feeling feverish. The patient was subsequently sent to the hospital. PAST MEDICAL HISTORY: The patient has significant medical history of complicated large ventral hernia with status post abdominal wall dehiscence and ventral hernia surgery. The patient has diabetes mellitus, hypertension, hypertensive heart disease, coronary artery disease, morbid obesity, depression, and anxiety. ALLERGIES: THE PATIENT IS ALLERGIC TO ERYTHROMYCIN, ASPIRIN, DARVOCET, AND IODINE. PAST SURGICAL HISTORY: The patient has knee surgery and the patient has shoulder fracture. The patient has large ventral hernia surgery and abdominal wall dehiscence. SOCIAL HISTORY: Denies smoking. Denies using alcohol. The patient lives with her son. REVIEW OF SYSTEMS: As per history of present illness. PHYSICAL EXAMINATION: VITAL SIGNS: Temperature 99, pulse rate 90, blood pressure 110/70, and respiratory rate 20. HEENT: Normocephalic, atraumatic. NECK: No JVD. No lymphadenopathy. LUNGS: Bilateral equal air entry. No rales. No rhonchi. HEART: S1 and S2, regular. Systolic murmur present. ABDOMEN: Soft. Bowel sounds are present. The patient has large ventral hernia with remote 3 cm ulcer with slough and purulent discharge. EXTREMITIES: No edema. NEUROLOGIC: No focal neurological deficit. ADMITTING INPATIENT DIAGNOSES: Abdominal wall cellulitis with ulceration with large ventral hernia, diabetes mellitus, hypertension, coronary artery disease, and morbid obesity. HOSPITAL COURSE SUMMARY: The patient will be admitted with above diagnoses. We will treat the patient with IV antibiotics, vancomycin and Zosyn. We will obtain local wound care and obtain wound care consult and ID consult. I will get a CT scan of the abdomen. MD MEGAN Carbone/MODL /[id number]
--- NOTE | 2019-02-05 18:43 | Consultation ---
DATE OF CONSULTATION: Wound Consultation. Thank you Dr. Zane Liang for asking us to see this patient with a nonhealing ulcer to the abdominal wall. HISTORY OF PRESENT ILLNESS: A 68-year-old female patient, underwent surgery in October 2011 for hernia. She also had appendicectomy. She had multiple hernia surgeries, total of 4, by Dr. Sher and Rasheeda in the past. She had a dehiscence and nonhealing wound, which was treated in the past with the wound VAC and the skin graft. She has large ventral hernia. The patient's abdominal wall skin has been stretched without muscle layer underneath, with intestine under the subcutaneous tissue and her abdominal fold was rubbing and she developed wound on the hernial pouch. Wound has some slough measures approximately 6 x 3.5 cm x 0.2 cm. PAST MEDICAL HISTORY: Depression, hypertension, and insomnia. MEDICATIONS: Alprazolam 1 mg t.i.d., cefuroxime, Plavix 75 mg daily, Pristiq 100 mg daily, pantoprazole, Seroquel 25 mg tablet, 400 mg p.o. daily; Ambien 12.5 mg at night. ALLERGIES: FISH CONTAINING PRODUCTS, TAPE, ASPIRIN, AVOCADO, BANANA, CHICKPEA, CODEINE, COFFEE, ERYTHROMYCIN, IODINE, KIWI, LATEX, MUSHROOM, PROPOXYPHENE, WALNUTS. PHYSICAL EXAMINATION: GENERAL: Height 60 inches, weight 187 pounds. HEENT: Normal. NECK: No JVD. LUNGS: Clear. ABDOMEN: The patient has abdominal hernia with a wound on the hernial mass. Recommend abdominal binder, however, the patient says her liver and the intestine are into the hernial mass and she refused to wear. There is a wound, 50% slough and 50% pink, and wound margin attached to base. ASSESSMENT: Abdominal wall ulcer from stretching of the scar tissue and breakdown of the skin. Stretching secondary to hernial mass. PLAN: Apply Santyl, hydrogel and Mepilex. Discussed with the patient at length to consider using the abdominal binder, she refused. The patient is going for barium study. Thank you Dr. Zane Liang for asking us to see this patient. I will follow with you. Wally Elena MD TG/MODL /[id number]
[2019-02-05] MEDS ORDERED: SODIUM CHLORIDE 0.9% 250ML 250 ML ONE (19:39)
[2019-02-05 19:45] VITALS: BP 123/59
[2019-02-05] MEDS: QUETIAPINE FUMARATE 100 MG TAB PO SCH (21:13)
[2019-02-05 21:15] VITALS: BP 123/59
[2019-02-06] MEDS: PIPER-TAZ 3.375 GM 50 ML IV SCH ×3 (00:06→16:15)
--- NOTE | 2019-02-06 00:06 | NUR ---
PT RESTING IN BED WITH NO S/S OF DISTRESS.RESPIRATIONS EVEN/NON LABORED.PT REFUSED VITAL SIGNS TO BE CHECKED.CALL LIGHT WITHIN EASY REACH.FAMILY MEMBER AT BEDSIDE.
--- NOTE | 2019-02-06 01:29 | Consultation ---
DATE OF CONSULTATION: Consultation Note REASON FOR CONSULTATION: Abdominal wall hernia. HISTORY OF PRESENT ILLNESS: This patient is a 68-year-old white female, history of morbidly obese patient, history of chronic obstructive asthma. She had ventral abdominal wall hernia surgery that resulted with infection and dehiscence and multiple surgeries. Last time was several years ago, but apparently, the patient has not been seeing anyone for some time now. She has presented with worsening swelling, multilobular lesion on her abdomen, getting progressively worse with some pain and dehiscence of her wound. No fever. No chills. She finally came to the emergency room. CAT scan was done. She had a very large ventral abdominal wall hernia with defect measuring about approximately containing large segment of small and large intestine, and greater curvature of the stomach and portion of the left hepatic lobe. No inflammatory changes. The patient is being admitted. I am asked to see her. She denies any fever or chills, but she does have some abdominal discomfort. LABORATORY DATA: Reviewed. White count 15.8 and hemoglobin 14. Sodium 143, potassium 3.8, and creatinine 1.1. MEDICATIONS: The patient is currently on Zosyn and vancomycin. PAST MEDICAL HISTORY: Obesity, multiple abdominal surgeries, and ventral hernia with complication. ALLERGIES: LONG LIST OF ALLERGIES; TAPE, CODEINE, AND ERYTHROMYCIN. SOCIAL HISTORY: There is no smoking, drug abuse, or alcohol abuse. MEDICATIONS: She has been on albuterol. She also has been on alprazolam. She has been on hydrocodone and Levoxyl. PHYSICAL EXAMINATION: GENERAL: She is currently alert, oriented, and does not seem to be in acute distress. VITAL SIGNS: Stable. Afebrile. HEENT: She is not icteric. NECK: Supple. CHEST: Clear. HEART: S1 and S2. No S3, S4, or murmur. ABDOMEN: Soft, but she has large several masses noted under the skin, soft with dehiscence of the wound with some redness and swelling of about 4 x 4 cm. IMPRESSION/PLAN: 1. Abdominal wall cellulitis in a morbidly obese patient, diabetes mellitus, dehiscence of abdominal wound, multiple ventral herniations, ventral surgeries before, hypertension, and chronic obstructive pulmonary disease. She is currently on vancomycin and Zosyn with abdominal wall cellulitis. The problem is her hernia, which to me, it looks very complicated and surgically almost impossible. The patient does not want any further surgery. 2. Dehiscence of abdominal wound in the patient with obesity. Agree with wound care. 3. Cellulitis. Agrees IV antibiotics. 4. Discussed with attending. Discussed with the family. Discussed with the patient. Time spent, 1 hour. MD JIM Velasquez/RUDDY /[id number]
[2019-02-06 04:54] VITALS: BP 117/55
[2019-02-06 05:14] LABS: BASOPHILS # (AUTO) 0.2 (0.0-0.1); BASOPHILS % 1.7 % (0.0-1.0); EOSINOPHILS # (AUTO) 0.4 (0.0-0.4); EOSINOPHILS % 4.3 % (0.0-6.0); HEMATOCRIT 40.8 % (34.2-44.1); HEMOGLOBIN 12.4 g/dL (12.0-16.0); LYMPHOCYTES # (AUTO) 3.9 (1.0-3.2); LYMPHOCYTES % 43.3 % (18.0-39.1); MEAN CORPUSCULAR HEMOGLOBIN 28.7 pg (28-32); MEAN CORPUSCULAR HGB CONC 30.4 g/dL (31-35); MEAN CORPUSCULAR VOLUME 94.4 fL (81-99); MONOCYTES # (AUTO) 0.9 (0.2-0.8); MONOCYTES % 10.4 % (4.4-11.3); NEUTROPHILS # (AUTO) 3.3 (2.1-6.9); NEUTROPHILS % 36.1 % (38.7-80.0); PLATELET COUNT 220 x10e3/uL (140-360); RED BLOOD COUNT 4.32 x10e6/uL (3.6-5.1); RED CELL DISTRIBUTION WIDTH 15.9 % (11.7-14.4)
[2019-02-06] MEDS: HYDROCODONE/APAP 10MG-325MG TAB PO PRN ×4 (05:41→20:20)
[2019-02-06] MEDS: LEVOTHYROXINE SODIUM 50 MCG TAB PO SCH (05:41)
--- NOTE | 2019-02-06 05:41 | NUR ---
PT REFUSED MEDICATION LEVOTHYROXINE.PT STATED "I DONT TAKE THYROID MEDICINE".
--- NOTE | 2019-02-06 05:50 | NUR ---
SHARAD ROBERT TO NOTIFY BLOOD CULTURE RESULT,AWAITING CALL BACK. Addendum: 02/06/19 at 0615 by Jing Puri RN DR ROBERT
--- NOTE | 2019-02-06 07:24 | NUR ---
BEDSIDE REPORT GIVEN TO ONCOMING NURSE.
[2019-02-06] MEDS: INSULIN LISPRO 100 UNIT/1 ML 3ML VIAL SQ SCH ×4 (07:30→19:51)
[2019-02-06 07:37] LABS: EOSINOPHILS % (MANUAL) 5 % (0-7); LYMPHOCYTES % (MANUAL) 39 % (19-48); MONOCYTES % (MANUAL) 12 % (3.4-9.0); NEUTROPHILS % (MANUAL) 43 % (40-74)
[2019-02-06 07:38] LABS: PLATELET ESTIMATE ADEQUATE; PLATELET MORPHOLOGY COMMENT NORMAL; RBC MORPHOLOGY COMMENT NORMAL
[2019-02-06 08:18] VITALS: BP 132/59
--- NOTE | 2019-02-06 08:44 | NUR ---
IMM letter delivered and explained to pt. She verbalized understanding. Signed copy placed in chart. Copy given to pt.
[2019-02-06] MEDS: DESVENLAFAXINE SUCCINATE 50 MG TAB.SR.24H PO SCH (09:00)
[2019-02-06] MEDS ORDERED: COLLAGENASE 5 GM TUBE TOP SCH (09:00)
--- NOTE | 2019-02-06 09:32 | NUR ---
Patient is requesting pain medication , rates pain 07/30. Informed patient that medication is not due until 1130. Paged Dr. Priti Liang to see if frequency of pain medication can be changed. Waiting commercial litigation associate back.
[2019-02-06] MEDS: VANCOMYCIN 1GM/NS 250 ML 250 ML IV SCH ×2 (10:00→19:55)
[2019-02-06 11:53] VITALS: BP 114/56
--- NOTE | 2019-02-06 12:37 | NUR ---
Nutrition Screen Note RD Recommendation for Physician: - Continue 1800 ADA diet Plan of Care: RD following, monitoring for tolerance and adequacy Nutrition reason for involvement: Nutrition Risk Trigger- MST 2 Primary Diagnose(s): abdominal wall cellulitis PMH: large ventral hernia s/p surgery, abdominal wall dehiscence, DM, CAD, HTN Ht: 60 in Wt: 213 lb BMI: 41.6 kg/m2 IBW: [address] Assessment: (02/06) 68 YOF admitted for abdominal wall cellulitis with recent hx of ventral hernia surgery with abdominal wall dehiscence and chronic skin excoriation. Pt seen today per MST score and reported food allergies. Pt reports food allergies to fish/seafood, avocado, and mushrooms and states developing hives and swelling of the tongue if consumed. 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 Pt denies any N/V/C/D. Pt reports UBW of 214#, pt wt stable. Chart reviewed. Labs and meds reviewed. Will monitor and continue to follow. Current Diet: 1800 ADA Malnutrition Evaluation (02/06/19) The patient does not meet criteria for a specified degree of malnutrition at this time. Will re-evaluate at follow-up as appropriate. Diet Education Needs Assessment: Diet education not indicated. Nutrition Care Level: Low Signed: Suzanne Renteria RD, LD, [facility]
--- NOTE | 2019-02-06 14:21 | NUR ---
CASE MANAGEMENT INITIAL ASSESSMENT Finished Carpet Inspector to bedside to discuss plan of care with patient/family. CM/SW role and care transitions discussed. Anticipated discharge plan discussed along with duration of care. CM/SW discussed patients right to make decisions in care. CM work hours given. Patient lives: PATIENT LIVES WITH IN SINGLE STORY HOME IN [place], [place] Admit/Transfer: ED Hospital/ER visits since last admit: 1 POA/Emergency contact: KERWIN CAMPBELL: [phone] Current/Previous Home Health: NONE PCP/Follow-up Care: DR. Alex DUARTE Current/Previous DME: [employer]; SINGLE POINT CANE; WHEELCHAIR Medications (referring to index hospitalization or the first time you were in the hospital) a. Were changes made in your medications when you were in the hospital on [date of index hospitalization]? N/A Note: If no or not sure, please skip to question d b. Did you understand the changes? N/A c. Were you able to obtain your new medications right away? N/A d. Were you able to take your medications like the doctor wanted you to? N/A e. Did the hospital give you an accurate, easy to understand list of medications when you left? N/A Scale of 1-10 how comfortable does patient feel with disease management in outpatient setting: Other Services: Employment Status: UNEMPLOYED Areas of Concerns: WOUND CARE Referral Needs: POSSIBLE OUTPATIENT WOUND CARE Education Needs: WOUND CARE IMM/GUILLORY given and signed (if applicable): IMM Goal for discharge: DISCHARGE HOME WITH NO NEEDS AND EDUCATED TO COMPLETE WOUND CARE INDEPENDENTLY CM left business card at the bedside with contact information. Name and number was also written on the patients whiteboard. Patient verbalized understanding of discussion. CM will follow-up with ongoing discharge and transition of care needs.
[2019-02-06 15:31] VITALS: BP 123/68
--- NOTE | 2019-02-06 15:39 | NUR ---
IV infiltrated to right FA. Unable to gain IV access, rn discharge to try to place new IV
[2019-02-06] MEDS: QUETIAPINE FUMARATE 100 MG TAB PO SCH (19:55)
[2019-02-06 20:03] VITALS: BP 136/63
--- NOTE | 2019-02-06 20:50 | NUR ---
abdominal dressing change completed. patient tolerate well
[2019-02-06] MEDS: COLLAGENASE 5 GM TUBE TOP SCH (21:00)
[2019-02-06] MEDS: ZOLPIDEM TARTRATE 10 MG TAB PO PRN (21:11)
--- NOTE | 2019-02-06 21:25 | NUR ---
Right forearm IV infiltrated. D/C IV. Started new IV to left forearm. Patient tolerated well
[2019-02-07] VITALS (7 sets, daily range): BP systolic 122–136; BP diastolic 56–72
[2019-02-07] MEDS: HYDROCODONE/APAP 10MG-325MG TAB PO PRN ×5 (00:38→21:30)
[2019-02-07] MEDS: PIPER-TAZ 3.375 GM 50 ML IV SCH ×3 (00:38→17:13)
[2019-02-07] MEDS: LEVOTHYROXINE SODIUM 50 MCG TAB PO SCH (05:46)
[2019-02-07] MEDS: INSULIN LISPRO 100 UNIT/1 ML 3ML VIAL SQ SCH ×4 (07:30→20:42)
[2019-02-07] MEDS: DESVENLAFAXINE SUCCINATE 50 MG TAB.SR.24H PO SCH (09:00)
[2019-02-07] MEDS: COLLAGENASE 5 GM TUBE TOP SCH (09:00)
[2019-02-07] MEDS: VANCOMYCIN 1GM/NS 250 ML 250 ML IV SCH ×2 (10:00→19:30)
[2019-02-07] MEDS: ALBUTEROL SULF 0.083% NEB SOLN 3 ML NEB NEB SCH ×2 (13:00→20:00)
[2019-02-07] MEDS: GUAIFENESIN 600MG/DEXTROMETHORPHAN 30MG TABSR PO SCH (17:13)
--- NOTE | 2019-02-07 20:03 | Progress Note ---
DATE: 02/07/2019 SUBJECTIVE: Ms. Menjivar is up in a chair, comfortable. There are no new complaints. I have reviewed her plan of care with the patient. Yesterday, I have discussed the case at length with Wound Care. I shared it again today with her and her . PHYSICAL EXAMINATION: GENERAL: She is currently alert and oriented. Does not seem to be in acute distress. VITAL SIGNS: Stable. Currently, afebrile. HEENT: She is not icteric. NECK: Supple. CHEST: Clear. HEART: S1 and S2. No S3, S4, or murmur. ABDOMEN: Soft. Bowel sounds present. The abdomen is extremely distended. There are bulging masses. EXTREMITIES: No edema. SKIN: Also, superficially seems to be less erythematous. IMAGING: The CAT scan shows she had very large ventral abdominal wall hernia, contains portion of the colon, small intestine, stomach, and liver. IMPRESSION AND PLAN: 1. Abdominal wall cellulitis in a patient, who is morbidly obese with very large abdominal hernia as mentioned above. She is currently on IV antibiotic plus wound care. We need to work on reduction of some of this hernia. She had it for so many years and now almost all of her organs as mentioned above are in the hernia outside the intraabdominal space. Discussed with the patient about wearing a binding slowly. I think her issue is mainly mechanical. 2. Anemia. 3. We will continue IV antibiotic for the time being. We will discuss with attending. MD JIM Velasquez/RUDDY /[id number]
--- NOTE | 2019-02-07 20:13 | NUR ---
COMPLETED CONSENT FORM FOR PICC LINE INSERTION. CALLED PICC TEAM
--- NOTE | 2019-02-07 20:46 | NUR ---
NOTIFIED DR ROBERT HIGH VANC TROUGH 25.3, MD ORDER TO HOLD VANCOMYCIN AND CHECK VANC RANDOM IN THE MORNING
[2019-02-07] MEDS: ZOLPIDEM TARTRATE 10 MG TAB PO PRN (21:19)
[2019-02-07] MEDS: QUETIAPINE FUMARATE 100 MG TAB PO SCH (21:19)
[2019-02-08] VITALS (8 sets, daily range): BP systolic 118–175; BP diastolic 69–78
[2019-02-08] MEDS: ALBUTEROL SULF 0.083% NEB SOLN 3 ML NEB NEB SCH ×4 (00:36→19:00)
[2019-02-08] MEDS: LEVOTHYROXINE SODIUM 50 MCG TAB PO SCH (05:48)
--- NOTE | 2019-02-08 07:00 | NUR ---
RCD PT AT BED PT IS ALERT AND ORIENTED ASSESSMENT DONE PT RESTING ON BED IV PATENT BED LOW AND LOCKED CALL LIGHT IN REACH
--- NOTE | 2019-02-08 07:10 | NUR ---
DR ROBERT RETURNED CALL NO ORDER FOR CENTRAL LINE HE SAID HE COMING TO SEE THE PT
--- NOTE | 2019-02-08 07:11 | NUR ---
DR ROBERT AND DR Priti DUARTE AWARE ABOUT PT HAVE NO IV ACCESS
[2019-02-08 07:29] LABS: BASOPHILS # (AUTO) 0.2 (0.0-0.1); BASOPHILS % 1.4 % (0.0-1.0); EOSINOPHILS # (AUTO) 0.6 (0.0-0.4); EOSINOPHILS % 5.2 % (0.0-6.0); HEMATOCRIT 38.3 % (34.2-44.1); HEMOGLOBIN 11.7 g/dL (12.0-16.0); LYMPHOCYTES # (AUTO) 3.6 (1.0-3.2); LYMPHOCYTES % 34.5 % (18.0-39.1); MEAN CORPUSCULAR HEMOGLOBIN 28.8 pg (28-32); MEAN CORPUSCULAR HGB CONC 30.5 g/dL (31-35); MEAN CORPUSCULAR VOLUME 94.3 fL (81-99); MONOCYTES % 9.7 % (4.4-11.3); NEUTROPHILS # (AUTO) 4.6 (2.1-6.9); NEUTROPHILS % 43.3 % (38.7-80.0); PLATELET COUNT 234 x10e3/uL (140-360); RED BLOOD COUNT 4.06 x10e6/uL (3.6-5.1); RED CELL DISTRIBUTION WIDTH 16.1 % (11.7-14.4)
[2019-02-08] MEDS: INSULIN LISPRO 100 UNIT/1 ML 3ML VIAL SQ SCH ×4 (07:30→20:11)
[2019-02-08] MEDS: VANCOMYCIN 1GM/NS 250 ML 250 ML IV SCH ×2 (07:30→19:30)
[2019-02-08 07:49] LABS: ALANINE AMINOTRANSFERASE 31 IU/L (0-55); ALBUMIN 2.3 g/dL (3.5-5.0); ALBUMIN/GLOBULIN RATIO 0.6 (0.8-2.0); ALKALINE PHOSPHATASE 96 IU/L (40-150); ANION GAP 10.6 mmol/L (8-16); BLOOD UREA NITROGEN 13 mg/dL (7-26); BUN/CREATININE RATIO 16 (6-25); CALCIUM 8.6 mg/dL (8.4-10.2); CARBON DIOXIDE 29 mmol/L (22-29); CHLORIDE 103 mmol/L (98-107); CREATININE, SERUM 0.83 mg/dL (0.57-1.11); EST GLOMERULAR FILTRATION RATE > 60 ML/MIN (60-); GLUCOSE 124 mg/dL (74-118); POTASSIUM 3.6 mmol/L (3.5-5.1); SODIUM 139 mmol/L (136-145)
[2019-02-08] MEDS: PIPER-TAZ 3.375 GM 50 ML IV SCH ×4 (08:00→20:12)
--- NOTE | 2019-02-08 08:37 | Diagnostic Imaging Report ---
EXAMINATION: CHEST 2 VIEWS INDICATION: Bronchitis. COMPARISON: Chest radiograph 02/04/2019. CT abdomen/pelvis 02/05/2019. FINDINGS: TUBES and LINES: None. LUNGS: Lungs are well inflated. Lungs are clear. There is no evidence of pneumonia or pulmonary edema. PLEURA: No pleural effusion or pneumothorax. HEART AND MEDIASTINUM: The cardiomediastinal silhouette is unchanged and mildly enlarged. BONES AND SOFT TISSUES: There is a deformity of the left proximal humerus of unclear chronicity. UPPER ABDOMEN: No free air under the diaphragm. Surgical clips are present in the upper abdomen. IMPRESSION: No evidence of pneumonia. Deformity of the left proximal humerus, of unclear chronicity. Suggest dedicated left shoulder radiographs for further evaluation to evaluate for fracture. Signed by: Dr. Rajni Gonzalez MD on 02/08/2019 8:34 AM
[2019-02-08] MEDS: COLLAGENASE 5 GM TUBE TOP SCH (09:00)
[2019-02-08] MEDS: DESVENLAFAXINE SUCCINATE 50 MG TAB.SR.24H PO SCH (09:00)
[2019-02-08] MEDS: GUAIFENESIN 600MG/DEXTROMETHORPHAN 30MG TABSR PO SCH ×2 (09:00→16:39)
--- NOTE | 2019-02-08 10:00 | NUR ---
PT REFUSED ABDOMINAL BINDER
[2019-02-08] MEDS: HYDROCODONE/APAP 10MG-325MG TAB PO PRN ×2 (10:20→15:20)
--- NOTE | 2019-02-08 11:57 | NUR ---
CM to bedside to discuss [facility] patients rights. IMM discussed and signature obtained from patient. Patient verbalized understanding of discussion. Copy of IMM to chart and copy left in Transition in Care folder.
--- NOTE | 2019-02-08 15:30 | NUR ---
PT C/O NAUSEA PAGED DR Priti DUARTE TO NOTIFY THAT
--- NOTE | 2019-02-08 16:03 | NUR ---
DR Priti DUARTE RETURNED THE CALL GOT NEW ORDERS
[2019-02-08] MEDS ORDERED: ONDANSETRON HCL 4 MG ORAL DISINTEGRATING TAB PO PRN (16:15)
--- NOTE | 2019-02-08 17:00 | NUR ---
DR ROBERT CAME TO SEE THE PATIENT NO NEW ORDERS NOTIFIED
--- NOTE | 2019-02-08 18:38 | NUR ---
PT RESTING ON BED BED SIDE REPORT GIVEN TO ONCOMING NURSE
--- NOTE | 2019-02-08 20:34 | Progress Note ---
DATE: SUBJECTIVE: Ms. Menjivar has no IV access. We could not secure IV access in her. We tried the PICC line, we tried the midline. REVIEW OF SYSTEMS: There is nothing new. She could not tolerate the abdominal binding. PHYSICAL EXAMINATION: GENERAL: She is currently alert, oriented, does not seem to be in acute distress. VITAL SIGNS: Stable. Afebrile. HEENT: She is not icteric. NECK: Supple. CHEST: Clear. HEART: S1 and S2. ABDOMEN: Soft. The wound is almost healing. There is no redness, no swelling. IMPRESSION AND PLAN: 1. Cellulitis, resolved. 2. Abdominal wound. I think it is mechanical from pressing of the intestine on the skin. Discussed with the patient. Discussed with Dr. Jones. She needs to try some type of pressure since she said she could not tolerate anything until we get some soft sweater just to wrap it up and continue with the local care. We will discontinue antibiotic. The patient will be discharged home with local care and abdominal binding, and follow up as an outpatient. MD JIM Velasquez/RUDDY /[id number]
[2019-02-08] MEDS: QUETIAPINE FUMARATE 100 MG TAB PO SCH (20:45)
[2019-02-08] MEDS: ZOLPIDEM TARTRATE 10 MG TAB PO PRN (20:50)
[2019-02-09] VITALS (8 sets, daily range): BP systolic 116–141; BP diastolic 60–85
[2019-02-09] MEDS: ALBUTEROL SULF 0.083% NEB SOLN 3 ML NEB NEB SCH ×4 (01:00→19:00)
[2019-02-09] MEDS: HYDROCODONE/APAP 10MG-325MG TAB PO PRN ×4 (04:36→21:06)
--- NOTE | 2019-02-09 06:11 | NUR ---
PATIENT C/O FRONTAL LOBE ROQUE STARTING 0600. DENIES CHANGES IN VISION. PAGED DR. DUARTE FOR ORDERS.
[2019-02-09] MEDS: LEVOTHYROXINE SODIUM 50 MCG TAB PO SCH (06:30)
--- NOTE | 2019-02-09 07:00 | NUR ---
SHIFT REPORT RECEIVED DURING BEDSIDE ROUNDING FROM NIGHT RN. PT DENIES NEEDS AT THIS THIS TIME.
[2019-02-09] MEDS: INSULIN LISPRO 100 UNIT/1 ML 3ML VIAL SQ SCH ×4 (07:30→20:30)
[2019-02-09] MEDS: VANCOMYCIN 1GM/NS 250 ML 250 ML IV SCH (07:30)
[2019-02-09] MEDS: PIPER-TAZ 3.375 GM 50 ML IV SCH (08:00)
--- NOTE | 2019-02-09 08:34 | NUR ---
CALLED DR ROBERT TO CONFIRM DISCONTINUING THE IV ABX AND WHETHER NEEDS TO CHANGE TO PO ABX. PT HAS NO IV ACCESS
[2019-02-09] MEDS: COLLAGENASE 5 GM TUBE TOP SCH ×2 (09:00→11:06)
[2019-02-09] MEDS: DESVENLAFAXINE SUCCINATE 50 MG TAB.SR.24H PO SCH ×2 (09:00→09:24)
[2019-02-09] MEDS: GUAIFENESIN 600MG/DEXTROMETHORPHAN 30MG TABSR PO SCH ×2 (09:24→17:27)
[2019-02-09] MEDS ORDERED: NYSTATIN 15 GM POWDER UD BTL TOP PRN (13:30)
[2019-02-09] MEDS: QUETIAPINE FUMARATE 100 MG TAB PO SCH (21:05)
[2019-02-09] MEDS: ZOLPIDEM TARTRATE 10 MG TAB PO PRN (21:06)
--- NOTE | 2019-02-09 23:50 | NUR ---
Performed dressing change to abd. Patient tolerated well. Denies pain at this time.
[2019-02-10] VITALS (7 sets, daily range): BP systolic 124–166; BP diastolic 68–98
[2019-02-10] MEDS: ALBUTEROL SULF 0.083% NEB SOLN 3 ML NEB NEB SCH ×4 (00:13→19:00)
[2019-02-10] MEDS: HYDROCODONE/APAP 10MG-325MG TAB PO PRN ×5 (02:38→21:01)
[2019-02-10] MEDS: LEVOTHYROXINE SODIUM 50 MCG TAB PO SCH ×2 (06:00→20:25)
--- NOTE | 2019-02-10 07:05 | NUR ---
RECEIVED BEDSIDE REPORT FROM RAILROAD CARMAN RN. PT DENIED NEEDS AT THIS TIME.
[2019-02-10] MEDS: INSULIN LISPRO 100 UNIT/1 ML 3ML VIAL SQ SCH ×4 (07:30→20:25)
[2019-02-10] MEDS: DESVENLAFAXINE SUCCINATE 50 MG TAB.SR.24H PO SCH (08:50)
[2019-02-10] MEDS: GUAIFENESIN 600MG/DEXTROMETHORPHAN 30MG TABSR PO SCH ×2 (08:50→16:19)
[2019-02-10] MEDS: COLLAGENASE 5 GM TUBE TOP SCH (09:00)
--- NOTE | 2019-02-10 09:30 | NUR ---
WOUND DRESSING CHANGE COMPLETED WITH MIS AND SKINISIDORO.
--- NOTE | 2019-02-10 19:10 | NUR ---
BEDSIDE REPORT GIVEN TO ONCOMING DIRECTOR [employer] RN.
[2019-02-10] MEDS: QUETIAPINE FUMARATE 100 MG TAB PO SCH (21:01)
[2019-02-10] MEDS: ZOLPIDEM TARTRATE 10 MG TAB PO PRN (21:01)
--- NOTE | 2019-02-10 21:50 | NUR ---
PATIENT REQUESTING GABAPENTIN ORDER. NOTED GABAPENTIN IN HOME MEDS NOT RENEWED. PAGED DR. DUARTE. RECEIVED NEW ORDERS.
[2019-02-10] MEDS: GABAPENTIN 300 MG CAP PO SCH (23:00)
[2019-02-11] MEDS: HYDROCODONE/APAP 10MG-325MG TAB PO PRN ×5 (00:20→22:00)
[2019-02-11] MEDS: ALBUTEROL SULF 0.083% NEB SOLN 3 ML NEB NEB SCH ×4 (01:00→19:00)
[2019-02-11 06:16] LABS: BASOPHILS # (AUTO) 0.2 (0.0-0.1); BASOPHILS % 1.9 % (0.0-1.0); EOSINOPHILS # (AUTO) 0.5 (0.0-0.4); EOSINOPHILS % 4.2 % (0.0-6.0); HEMATOCRIT 41.9 % (34.2-44.1); HEMOGLOBIN 12.5 g/dL (12.0-16.0); LYMPHOCYTES # (AUTO) 3.9 (1.0-3.2); LYMPHOCYTES % 35.5 % (18.0-39.1); MEAN CORPUSCULAR HEMOGLOBIN 28.9 pg (28-32); MEAN CORPUSCULAR HGB CONC 29.8 g/dL (31-35); MEAN CORPUSCULAR VOLUME 96.8 fL (81-99); MONOCYTES # (AUTO) 1.3 (0.2-0.8); MONOCYTES % 12.1 % (4.4-11.3); NEUTROPHILS # (AUTO) 4.5 (2.1-6.9); PLATELET COUNT 247 x10e3/uL (140-360); RED BLOOD COUNT 4.33 x10e6/uL (3.6-5.1); RED CELL DISTRIBUTION WIDTH 16.5 % (11.7-14.4)
[2019-02-11 06:49] LABS: ALANINE AMINOTRANSFERASE 23 IU/L (0-55); ALBUMIN 2.5 g/dL (3.5-5.0); ALBUMIN/GLOBULIN RATIO 0.5 (0.8-2.0); ALKALINE PHOSPHATASE 95 IU/L (40-150); ANION GAP 11.8 mmol/L (8-16); BLOOD UREA NITROGEN 16 mg/dL (7-26); BUN/CREATININE RATIO 18 (6-25); CARBON DIOXIDE 30 mmol/L (22-29); CHLORIDE 102 mmol/L (98-107); EST GLOMERULAR FILTRATION RATE > 60 ML/MIN (60-); GLUCOSE 128 mg/dL (74-118); POTASSIUM 3.8 mmol/L (3.5-5.1); SODIUM 140 mmol/L (136-145)
[2019-02-11] MEDS: INSULIN LISPRO 100 UNIT/1 ML 3ML VIAL SQ SCH ×4 (07:30→20:58)
[2019-02-11 07:52] LABS: ANISOCYTOSIS SLIGHT; BAND NEUTROPHILS % (MANUAL) 1 %; EOSINOPHILS % (MANUAL) 8 % (0-7); LYMPHOCYTES % (MANUAL) 34 % (19-48); METAMYELOCYTES % (MANUAL) 1 % (0-0); MONOCYTES % (MANUAL) 15 % (3.4-9.0); MYELOCYTES % (MANUAL) 2 % (0-0); NEUTROPHILS % (MANUAL) 38 % (40-74); PLATELET ESTIMATE ADEQUATE; PLATELET MORPHOLOGY COMMENT NORMAL; RBC MORPHOLOGY COMMENT NORMAL
[2019-02-11 08:00] VITALS: BP 134/67
[2019-02-11] MEDS: DESVENLAFAXINE SUCCINATE 50 MG TAB.SR.24H PO SCH (09:00)
--- NOTE | 2019-02-11 09:01 | NUR ---
IMM letter delivered and explained to pt. She verbalized understanding. Signed copy placed in chart. Copy to pt.
[2019-02-11] MEDS: GABAPENTIN 300 MG CAP PO SCH ×2 (09:02→21:14)
[2019-02-11] MEDS: GUAIFENESIN 600MG/DEXTROMETHORPHAN 30MG TABSR PO SCH ×2 (09:02→16:49)
[2019-02-11] MEDS: COLLAGENASE 5 GM TUBE TOP SCH (09:03)
[2019-02-11 09:45] VITALS: BP 147/67
[2019-02-11 16:00] VITALS: BP 119/68
--- NOTE | 2019-02-11 17:47 | Diagnostic Imaging Report ---
Ventilation/perfusion lung scan Clinical Information: 68 F admitted for abdominal wall cellulitis; acute onset SOB Comparison: Chest radiograph 02/08/2019 Discussion: Xenon-133 gas 10.7 mCi was administered via inhalation. Dynamic images of the lungs in the posterior projection were obtained through single breath, equilibrium, and washout phases. Distribution of tracer activity is irregular throughout the lungs. There are no segmental ventilatory defects. Washout of tracer is diffusely delayed with diffuse a6.6ir trapping. Perfusion images of the lungs were obtained in multiple projections following intravenous administration of approximately 5 mCi of Tc-99m MAA. Distribution of tracer is irregular throughout the lungs. The contours of the lungs are well demarcated. There are no segmental perfusion defects of any size. The cardiomediastinal silhouette is mildly enlarged. Impression: Scan findings represent a VERY LOW probability for acute pulmonary embolic disease based on the PIOPED II criteria. Scan evidence of obstructive lung disease. Signed by: Dr. Marcela Carrera M.D. on 02/11/2019 5:44 PM
--- NOTE | 2019-02-11 19:33 | NUR ---
Patient received asleep in bed. at bedside. Arousable to tactile stimuli. No signs of pain or respiratory distress. Fall precautions implemented. Bed locked and in lowest position. Bed rails up x 2. Call light within reach.
[2019-02-11 20:00] VITALS: BP 144/66
[2019-02-11] MEDS: QUETIAPINE FUMARATE 100 MG TAB PO SCH (21:14)
[2019-02-11 21:30] VITALS: BP 144/66
[2019-02-11] MEDS ORDERED: ZOLPIDEM TARTRATE 10 MG TAB PO PRN (21:45)
[2019-02-12] VITALS: BP 127/78
[2019-02-12] MEDS: ALBUTEROL SULF 0.083% NEB SOLN 3 ML NEB NEB SCH ×3 (01:15→13:00)
--- NOTE | 2019-02-12 01:30 | NUR ---
Wound dressing done per MD's orders. Patient tolerated well.
[2019-02-12 04:00] VITALS: BP 127/78
--- NOTE | 2019-02-12 05:40 | NUR ---
Patient refused medication (Synthroid 50 mcg). Reason: Medication makes her dizzy.
[2019-02-12] MEDS: LEVOTHYROXINE SODIUM 50 MCG TAB PO SCH (05:42)
[2019-02-12] MEDS: HYDROCODONE/APAP 10MG-325MG TAB PO PRN ×2 (06:01→12:50)
[2019-02-12] MEDS: INSULIN LISPRO 100 UNIT/1 ML 3ML VIAL SQ SCH ×2 (07:30→11:30)
[2019-02-12 08:00] VITALS: BP 148/64
[2019-02-12] MEDS: DESVENLAFAXINE SUCCINATE 50 MG TAB.SR.24H PO SCH (09:00)
[2019-02-12] MEDS: GUAIFENESIN 600MG/DEXTROMETHORPHAN 30MG TABSR PO SCH (09:00)
[2019-02-12] MEDS: GABAPENTIN 300 MG CAP PO SCH (09:00)
[2019-02-12] MEDS: COLLAGENASE 5 GM TUBE TOP SCH (09:00)
[2019-02-12 09:30] VITALS: BP 148/64
--- NOTE | 2019-02-12 10:35 | Discharge Summary ---
HISTORY: This is a 68-year-old female patient, presented to the emergency room with a complaint of severe abdominal pain, abdominal wall wound . ADMITTING IMPRESSION AND DIAGNOSES: Abdominal wall cellulitis with abdominal wall wound with a large ventral hernia, which is complicating the ulcer and healing. The patient has a very large ventral hernia. The patient has also coronary artery disease, previous angioplasty, and morbid obesity. HOSPITAL COURSE/SUMMARY: The patient was admitted with the above diagnoses. The patient was started with IV antibiotics, vancomycin and Zosyn. The patient had wound care and ID consultation was done. The patient had a CT scan of the abdomen that was also done, which showed a large ventral hernia, but no abscess and no fistula. It had shown a very large ventral hernia and her bowels were in the hernia loop. The patient had a PICC line that was attempted, but for unknown reason, was removed by the clinical dental technician. The patient's antibiotics were discontinued and patient was given wound care with Hydrogel and Santyl. The patient had developed some hypoxemia and right calf tenderness, so we will obtain a venous Doppler study for the right leg and the V/Q scan prior to discharge. It showed that the patient had no DVT or PE. The patient will be discharged home and the patient will need outpatient wound care. MD MEGAN Carbone/NICOLLEL /[id number]
[2019-02-12 12:00] VITALS: BP 140/63
--- NOTE | 2019-02-12 13:09 | Diagnostic Imaging Report ---
History:Double vision Comparison studies:CT head 09/16/2013 Technique: Axial images were obtained from the skull base to the vertex. Coronal and sagittal images reconstructed from the axial data. Intravenous contrast: None Dose modulation, iterative reconstruction, and/or weight based adjustment of the mA/kV was utilized to reduce the radiation dose to as low as reasonably achievable. Findings: Motion artifact limits evaluation of the skull base Scalp/skull: No abnormalities. Extra-axial spaces: No masses. No fluid collections. Brain sulci: Mildly prominent. Ventricles: Mild compensatory dilatation. No hydrocephalus. Parenchyma: No abnormal densities. No masses, hemorrhage, acute or chronic cortical vascular insults. Sellar/suprasellar region: No abnormalities. Craniocervical junction: Patent foramen magnum. No Chiari one malformation. Incidental findings: Atherosclerotic calcifications in the carotid siphons . Impression: No acute abnormalities. Chronic findings: 1. Mild age-related generalized volume loss. Signed by: DR Jose Dunlap M.D. on 02/12/2019 1:06 PM
--- NOTE | 2019-02-12 13:53 | NUR ---
The pt. has been given discharge information and instructions for follow up. The iv was removed and the pt. advises the nurse that she does not have a ride until between 6 to 7 this evening. The supervisor cigarette making department was notified. The pt's spouse came to the station and reported that they have found a ride and will be leaving within the hour.
--- NOTE | 2019-02-12 15:30 | NUR ---
The pt. was discharged home post dressing change supplies were given, iv removed and follow up instructions given. She was escorted to private car for transport home.
--- NOTE | 2019-02-12 18:04 | NUR ---
Late Note: Met with pt earlier today and discussed home health. Signed choice letter. Clinical faxed to [facility] [phone]; office [phone]
--- NOTE | 2019-02-13 07:03 | Discharge Summary ---
ADDENDUM: She is a 68-year-old female patient. She was planned to be discharged yesterday, but then the patient was having a V/Q scan and venous Doppler to rule out PE and DVT and the patient was started complaining of some transient diplopia. So, the patient . The patient has no current new focal neurological deficits. Physical examination remains the same. So, now we will be getting a CT scan of the head stat to rule out any ischemic event. If it is negative, we will be discharging the patient home. The patient is waiting from the insurance company to get approval for the outpatient wound care and home health therapy and this patient should be discharged home today. MD MEGAN Carbone/MODL /[id number]
--- NOTE | 2019-02-13 13:47 | NUR ---
WOUND SCREEN ATTEMPTED; PATIENT ALREADY DISCHARGED FROM HOSPITAL. Addendum: 02/13/19 at 1348 by Pari Mercedes RN Amended: Links added.
== END 2019-02-12 15:29 | disposition home or self-care (01) | DRG 603 ==
LOC: ER 18:23 → ERHOLD 23:54 → MED/SURG2 02-05 10:47
PROVIDERS: ADMIT Internal Medicine; ATTEND Internal Medicine
DX: L03.311 Cellulitis of abdominal wall (principal); T81.30XA Disruption of wound, unspecified, initial encounter; Z68.42 Body mass index [BMI] 45.0-49.9, adult; K43.9 Ventral hernia without obstruction or gangrene; Z88.6 Allergy status to analgesic agent; Z88.5 Allergy status to narcotic agent; Z88.0 Allergy status to penicillin; Z88.8 Allergy status to other drugs, medicaments and biological substances; Z91.018 Allergy to other foods; Z91.048 Other nonmedicinal substance allergy status; Z83.3 Family history of diabetes mellitus; Z82.49 Family history of ischemic heart disease and other diseases of the circulatory system; Z80.9 Family history of malignant neoplasm, unspecified; E11.9 Type 2 diabetes mellitus without complications; I11.9 Hypertensive heart disease without heart failure; I25.10 Atherosclerotic heart disease of native coronary artery without angina pectoris; E66.01 Morbid (severe) obesity due to excess calories; L98.491 Non-pressure chronic ulcer of skin of other sites limited to breakdown of skin; H53.2 Diplopia; Z91.040 Latex allergy status; J44.9 Chronic obstructive pulmonary disease, unspecified; D64.9 Anemia, unspecified; Z79.4 Long term (current) use of insulin; R53.81 Other malaise; R09.02 Hypoxemia
CPT/HCPCS: 36415; 70450; 71045; 71046; 74018; 74176; 78582; 80053; 80202; 81001; 82948; 85025; 85610; 85730; 87040; 87071; 87086; 87205; 93970; 94640; 97139; 99284; A9540; A9558; J2543; J3370; J7050

== ENCOUNTER 2019-02-20 14:43 | Emergency (ER) | payer MEDICARE, OTHER ==
[~2019-02-20] VITALS: Ht 152.4 cm; Wt 97.1 kg
[~2019-02-20 14:43] MED LIST changes: +CEFUROXIME250 MG PO; +IBUPROFEN200 MG PO; +LORATADINE10 MG PO; +MOBIC7.5 MG PO; +MORPHABOND PO; +MUPIROCIN22 GM TOP; +ONDANSETRON HCL4 MG PO; +PANTOPRAZOLE SO40 MG PO; +PAROXETINE HCL20 MG PO; +PRISTIQ ER100 MG PO; +PROAIR HFA INH8.5 GM INH; +SEROQUEL25 MG PO
--- OUTSIDE RECORDS SUMMARY | 2019-02-20 14:46 | XMS REPORT | Clinical Summary ---
Author Author [facility] Organization [facility] Address Unknown Phone Unavailable Care Team Providers Care Ecological Modeler Name Role Phone Asked, No Pcp PCP Unavailable Allergies Not on File Medications Not on file Active Problems Problem Noted Date Ventral hernia without obstruction or gangrene 05/08/2018 Encounters Care Team Description Date Type Specialty Cleveland Campos MD Ventral hernia without obstruction or gangrene (Primary Dx) 05/08/2018 Office Visit General Surgery after 02/19/2018 Social History Date Tobacco Use Types Packs/Day [...] VACCINE AGE 65 AND OVER INFLUENZA VACCINE 06/20/2019 08/14/2017, 08/20/2016 Results Not on fileafter 02/19/2018 Insurance Payer Benefit Subscriber ID Type Phone Address Plan / Group [employer] MEDICARE [employer] HMO xxxxxxxxx HMO GOLD PLUS MEDICARE [facility] MEDICAID [facility] xxxxxxxxx HMO [employer] [place] MEDICAID MEDICAID xxxxxxxxx Medicaid Surgery Advance Directives Patient has advance care planning documents on file. For more information, alessandra rob contact: Tae Pérez [address] [place] [address]
[2019-02-20] MEDS ORDERED: ONDANSETRON HCL 4 MG ORAL DISINTEGRATING TAB PO ONE (15:30)
[2019-02-20] MEDS ORDERED: ONDANSETRON HCL 4 MG ORAL DISINTEGRATING TAB ONE (15:32)
[2019-02-20] MEDS ORDERED: SODIUM CHLORIDE 0.9% 1000ML 1,000 ML IV STA (18:29)
[2019-02-20] MEDS ORDERED: SODIUM CHLORIDE 0.9% 1000ML 1,000 ML IV SCH (18:30)
[2019-02-20] MEDS ORDERED: ONDANSETRON HCL INJ 2MG/ML 2ML 2 MG/ML VIAL IV STA (18:31)
[2019-02-20] MEDS ORDERED: CEFTRIAXONE SOD 1 GM/NS 50 ML 100 ML IV ONE (18:45)
--- NOTE | 2019-02-20 18:50 | NUR ---
LUCI AT BEDSIDE FOR BLOOD DRAW AT THIS TIME.
[2019-02-20 19:19] LABS: BASOPHILS # (AUTO) 0.2 (0.0-0.1); BASOPHILS % 1.2 % (0.0-1.0); EOSINOPHILS % 0.1 % (0.0-6.0); HEMOGLOBIN 15.7 g/dL (12.0-16.0); LYMPHOCYTES # (AUTO) 2.4 (1.0-3.2); LYMPHOCYTES % 19.4 % (18.0-39.1); MEAN CORPUSCULAR HEMOGLOBIN 28.7 pg (28-32); MEAN CORPUSCULAR HGB CONC 30.8 g/dL (31-35); MEAN CORPUSCULAR VOLUME 93.2 fL (81-99); MONOCYTES # (AUTO) 0.6 (0.2-0.8); MONOCYTES % 4.9 % (4.4-11.3); NEUTROPHILS # (AUTO) 8.9 (2.1-6.9); NEUTROPHILS % 71.1 % (38.7-80.0); PLATELET COUNT 384 x10e3/uL (140-360); RED BLOOD COUNT 5.47 x10e6/uL (3.6-5.1); RED CELL DISTRIBUTION WIDTH 16.6 % (11.7-14.4)
[2019-02-20] MEDS ORDERED: DIATRIZOATE MEGL/DIATRIZOA SOD 30 ML BTL PO ONE (19:24)
[2019-02-20 19:38] LABS: INR 0.94; PARTIAL THROMBOPLASTIN TIME 29.4 seconds (23.8-35.5); PROTHROMBIN TIME 13.1 seconds (11.9-14.5)
[2019-02-20 19:44] LABS: ALBUMIN 3.4 g/dL (3.5-5.0); ALBUMIN/GLOBULIN RATIO 0.6 (0.8-2.0); CREATININE, SERUM 0.98 mg/dL (0.57-1.11)
[2019-02-20 20:14] LABS: CREATINE KINASE MB 1.8 ng/mL (0-5.0)
[2019-02-20 20:35] LABS: PLATELET ESTIMATE ADEQUATE; PLATELET MORPHOLOGY COMMENT NORMAL; RBC MORPHOLOGY COMMENT NORMAL
--- NOTE | 2019-02-20 20:40 | NUR ---
PT PRESENT TO NURSES STATION VOICING CONCERN OF UNRESPONSSIVENESS TO PT. AT THIS TIME, PT IS RESPONSIVE, PT STATES EPISODE LASTED A FEW SECONDS, V/S/S.
--- NOTE | 2019-02-20 21:20 | NUR ---
PICC TEAM NURSE AT BEDSIDE AT THIS TIME FOR PICC LINE INSERTION.
--- NOTE | 2019-02-20 22:00 | NUR ---
PT RESTING IN BED IN SEMIFOLWERS, NAD NOTED, BREATING EVEN/UNLABORED AT THIS TIME, V/S/S.
[2019-02-20] MEDS ORDERED: MORPHINE SULFATE INJ 4 MG/ML INJ 1ML IV STA (22:52)
--- NOTE | 2019-02-20 22:52 | Diagnostic Imaging Report ---
EXAMINATION: CT of the abdomen and pelvis without contrast. TECHNIQUE: Helical CT images of the abdomen and pelvis were performed from the lung bases to the lesser trochanters. No intravenous contrast was given per renal stone protocol. Coronal and sagittal reformatted images were obtained.Dose modulation, iterative reconstruction, and/or weight based adjustment of the mA/kV was utilized to reduce the radiation dose to as low as reasonably achievable. COMPARISON: None. CLINICAL HISTORY:Abdominal pain DISCUSSION: ABSENCE OF INTRAVENOUS CONTRAST DECREASES SENSITIVITY FOR DETECTION OF FOCAL LESIONS AND VASCULAR PATHOLOGY. ABDOMEN/PELVIS: LOWER THORAX: Lower lung atelectasis. HEPATOBILIARY:Hepatic steatosis. Cholecystectomy. SPLEEN: No splenomegaly. PANCREAS: No focal masses or ductal dilatation. ADRENALS: No adrenal nodules. KIDNEYS/URETERS: No hydronephrosis, stones, or solid mass lesions. PELVIC ORGANS/BLADDER: Bladder is decompressed. Hysterectomy. PERITONEUM/RETROPERITONEUM: Large anterior abdominal wall hernia transverse defect extending approximately 15 cm. The hernia contains portions of the stomach, small bowel, colon, liver and mesenteric fat. LYMPH NODES: No intra-abdominal,retroperitoneal, pelvic or inguinal lymphadenopathy. VESSELS: Limited evaluation. GI TRACT: No distention or wall thickening. BONES AND SOFT TISSUES: No bony destructive lesions. No soft tissue abnormalities. IMPRESSION: Large anterior abdominal hernia without complication. Signed by: Dr. Иван Mishra M.D. on 02/20/2019 10:49 PM
[2019-02-21] MEDS ORDERED: ONDANSETRON HCL INJ 2MG/ML 2ML 2 MG/ML VIAL IV STA (00:49)
[2019-02-21] MEDS ORDERED: MORPHINE SULFATE INJ 4 MG/ML INJ 1ML IV ONE (01:00)
--- NOTE | 2019-02-21 01:10 | NUR ---
REPORT GIVEN TO MARCI BARRETO
[2019-02-21] MEDS ORDERED: KETOROLAC TROMETHAMINE 30 MG/ML VIAL IV STA (03:35)
[2019-02-21] MEDS ORDERED: ULTRAM50 MG PO (03:40)
[2019-02-21] MEDS ORDERED: KEFLEX500 MG PO (04:47)
[2019-02-21 05:36] VITALS: BP 114/66
[2019-02-21 05:51] LABS: CLARITY,URINE SL CLOUDY (CLEAR); COLOR,URINE YELLOW (YELLOW); KETONES,URINE NEGATIVE (NEGATIVE); LEUKOCYTE ESTERASE ,URINE NEGATIVE (NEGATIVE); NITRITE,URINE NEGATIVE (NEGATIVE); PROTEIN,URINE DIPSTICK TRACE (NEGATIVE)
[2019-02-21 05:52] LABS: BILIRUBIN,URINE NEGATIVE (NEGATIVE); URINE UROBILINOGEN 0.2 mg/dL (0.2 - 1)
[2019-02-21 06:03] LABS: BACTERIA,URINE RARE /HPF; EPITHELIAL CELLS,URINE RARE /LPF; RBC,URINE 0-5 /HPF (0-5)
== END 2019-02-21 05:20 | disposition home or self-care (01) ==
LOC: ER 14:43
DX: R10.33 Periumbilical pain (principal); R11.2 Nausea with vomiting, unspecified; R19.7 Diarrhea, unspecified; R65.21 Severe sepsis with septic shock; I50.9 Heart failure, unspecified; K46.9 Unspecified abdominal hernia without obstruction or gangrene
CPT/HCPCS: 36415; 36569; 74176; 80053; 81001; 82150; 82550; 82553; 82948; 83605; 83690; 83880; 84484; 85025; 85610; 85730; 87040; 87086; 99284; J0696; J1885; J2270; J2405; J7030 ×2; Q0162

== ENCOUNTER → 2019-07-04 | Outpatient (CLI) | payer MEDICARE, OTHER ==
[~2019-07-04] MED LIST changes: +KEFLEX500 MG PO
--- NOTE | 2019-07-04 14:34 | Diagnostic Imaging Report ---
Chest, 2 views, 07/04/2019. History: COPD. Comparison: 02/08/2019. Findings: The cardiomediastinal silhouette and pulmonary vasculature are within normal limits. The lungs are clear without evidence of consolidation or pleural effusion. Deformity of the left proximal humerus is again noted. There are no acute osseous or soft tissue abnormalities. Impression: No acute cardiopulmonary abnormality. Signed by: Taiwo Sumner on 07/04/2019 2:31 PM
== END ==
LOC: RAD 12:47
PROVIDERS: ATTEND Internal Medicine
DX: J44.9 Chronic obstructive pulmonary disease, unspecified (principal)
CPT/HCPCS: 71046

== ENCOUNTER → 2021-06-23 | Outpatient (CLI) | payer MEDICARE | LOC: US 11:35 | PROVIDERS: ATTEND Internal Medicine | DX: K43.2 Incisional hernia without obstruction or gangrene (principal) | CPT/HCPCS: 76700; 76856 ==

== ENCOUNTER → 2021-07-15 | Outpatient (CLI) | payer MEDICARE | LOC: DX 13:09 | PROVIDERS: ATTEND Internal Medicine | DX: Z13.820 Encounter for screening for osteoporosis (principal) | CPT/HCPCS: 77080 ==

== ENCOUNTER → 2021-08-02 | Outpatient (CLI) | payer MEDICARE | LOC: CT 10:47 | PROVIDERS: ATTEND Nurse Practitioner Adult Health | DX: K46.9 Unspecified abdominal hernia without obstruction or gangrene (principal) | CPT/HCPCS: 74176 ==

== ENCOUNTER 2021-12-31 18:11 | Emergency (ER) | payer MEDICARE, OTHER ==
[~2021-12-31] VITALS: Ht 152.4 cm; Wt 87.5 kg
[2021-12-31] MEDS ORDERED: FENTANYL CITRATE/PF 100MCG/2 ML INJ IV PRN (19:15)
[2021-12-31 19:23] LABS: BASOPHILS # (AUTO) 0.2 (0.0-0.1); BASOPHILS % 1.5 % (0.0-1.0); EOSINOPHILS # (AUTO) 0.3 (0.0-0.4); EOSINOPHILS % 2.7 % (0.0-6.0); HEMATOCRIT 47.1 % (34.2-44.1); HEMOGLOBIN 14.7 g/dL (12.0-16.0); LYMPHOCYTES # (AUTO) 5.3 (1.0-3.2); LYMPHOCYTES % 44.7 % (18.0-39.1); MEAN CORPUSCULAR HEMOGLOBIN 30.8 pg (28-32); MEAN CORPUSCULAR HGB CONC 31.2 g/dL (31-35); MEAN CORPUSCULAR VOLUME 98.5 fL (81-99); MONOCYTES # (AUTO) 0.8 (0.2-0.8); MONOCYTES % 6.9 % (4.4-11.3); NEUTROPHILS # (AUTO) 4.8 (2.1-6.9); NEUTROPHILS % 40.6 % (38.7-80.0); PLATELET COUNT 234 x10e3/uL (140-360); RED BLOOD COUNT 4.78 x10e6/uL (3.6-5.1); RED CELL DISTRIBUTION WIDTH 13.8 % (11.7-14.4)
[2021-12-31 19:39] LABS: ALBUMIN 3.1 g/dL (3.5-5.0); ALBUMIN/GLOBULIN RATIO 0.5 (0.8-2.0); ANION GAP 18.8 mmol/L (8-16); CALCIUM 9.9 mg/dL (8.4-10.2); CREATININE, SERUM 0.98 mg/dL (0.57-1.11); POTASSIUM 3.8 mmol/L (3.5-5.1)
== END 2021-12-31 21:18 | disposition home or self-care (01) ==
LOC: ER 18:53
DX: R10.30 Lower abdominal pain, unspecified (principal); K43.9 Ventral hernia without obstruction or gangrene; I50.9 Heart failure, unspecified; J45.909 Unspecified asthma, uncomplicated; I25.2 Old myocardial infarction
CPT/HCPCS: 36415; 74176; 80053; 83690; 85025; 99283; J3010